=== PATIENT | female | born 1950 | race Caucasian/White ===

== ENCOUNTER 2017-12-22 12:37 | Outpatient (CLI) | payer MEDICARE, OTHER ==
[2017-12-22 13:19] LABS: BASOPHILS % 0.9 (0.0-1.5); EOSINOPHILS % 2.3 % (0.0-6.8); MEAN CORPUSCULAR HEMOGLOBIN 31.5 pg (28.0-34.0); MEAN CORPUSCULAR VOLUME 95.6 fl (80.0-100.0); MONOCYTES % 5.9 % (0.0-11.0); NEUTROPHILS # 3.9 # k/uL (1.4-7.7)
[2017-12-22 13:54] LABS: APPEARANCE,URINE Y (CLEAR); COLOR,URINE C (YELLOW); OCCULT BLOOD,URINE TRACE-INTACT (NEGATIVE); PH URINE 5.5 (5.0 - 8.0)
[2017-12-22 13:55] LABS: UROBILINOGEN URINE 0.2 Eu (0.2-1.0)
[2017-12-22 13:59] LABS: eGFR (African) > 60; eGFR (Non-African) > 60
== END 2017-12-22 12:40 ==
LOC: LAB 12:37
PROVIDERS: ATTEND Nurse Practitioner Family
DX: Z00.00 Encounter for general adult medical examination without abnormal findings (principal); E78.2 Mixed hyperlipidemia
CPT/HCPCS: 36415; 80053; 80061; 81002; 84439; 84443; 85025

== ENCOUNTER 2018-05-15 17:00 | Outpatient (CLI) | payer OTHER, MEDICARE ==
--- NOTE | 2018-05-15 19:08 | Diagnostic Imaging Report ---
GERALDO SINGH (SEBASTIÁN) - OP [facility] [address] [facility].[address] [id number] Report Submission Date: May 15, 2018 6:10:42 PM [employer] Patient Study Name: GERALDO CLEVELAND Date: May 15, 2018 4:57:12 PM [employer] Modality Type: DX Gender: F Description: CHEST : 50 Institution: [facility] Physician: GERALDO SINGH (SEBASTIÁN) - OP PA and lateral chest Clinical history: Cough. Right rib pain. Findings: Examination of the chest in PA and lateral views demonstrates the lungs to be hyperinflated but clear. There is an increase in the AP diameter of the chest and flattening of hemidiaphragms consistent with emphysema. Cardiac silhouette is within normal limits and the aorta is atherosclerotic. Bony thorax appears intact on these available images. There is no pneumothorax. Impression: 1. Emphysema. 2. Aortic atherosclerosis. Electronically signed on May 15, 2018 6:10:42 PM [employer] by: Gokul MARSHALL
== END 2018-05-15 17:03 ==
LOC: RAD 17:00
PROVIDERS: ATTEND Nurse Practitioner Family
DX: J43.9 Emphysema, unspecified (principal); I70.0 Atherosclerosis of aorta; R07.9 Chest pain, unspecified; R07.81 Pleurodynia
CPT/HCPCS: 71046